=== PATIENT | male | born 2000 | race Caucasian/White ===

== ENCOUNTER 2022-10-14 15:53 | Inpatient (IN) | payer OTHER, SELFPAY ==
[2022-10-14] VITALS (9 sets, daily range): BP systolic 127–144; BP diastolic 81–95; PULSE 108–145; RESP 18–31; TEMP 35.7–36.8; O2SAT 94–100; BMI 20.2
[2022-10-14] MEDS: 0.9% Normal Saline 1,000 ML 999 ML IV ×2 (16:00→18:42)
--- NOTE | 2022-10-14 16:04 | EKG12_ITS ---
Test Reason : DKA Blood Pressure : / mmHG Vent. Rate : 120 BPM Atrial Rate : 120 BPM P-R Int : 128 ms QRS Dur : 102 ms QT Int : 362 ms P-R-T Axes : 077 024 050 degrees QTc Int : 511 ms Sinus tachycardia Otherwise normal ECG Confirmed by REYMUNDO TILLEY, NEVIN ([id number]), film or videotape editor YAMILKA ORDAZ ([id number]) on 10/15/2022 11:03:42 AM Referred By: Confirmed By:NEVIN DWYER MD
--- NOTE | 2022-10-14 16:08 | EDS_ITS ---
HPI History of Present Illness Chief Complaint: Hyperglycemia Detail of Chief Complaint: Unresponsive Informant: spouse/S.O. Onset/Context/Timing Onset: - (Unknown) Context: - (Unknown) Timing: Continuous (He has not been his normal self since this morning per significant other) Quality: Patient has a GCS of 3 Current Severity: Severe Maximum Severity: Severe Worsened by: Suspect patient has DKA Relieved by: Nothing Associated Symptoms Associated Symptoms: Unable to determine Narrative Narrative: Patient recently moved to [place]. There is no information on patient per old records. Patient's significant other states he is not his normal self. She told me his grandmother is on the way. He does have history of type 1 diabetes. Unknown if he has taken his insulin recently. Unknown if he is on other location. [facility] Medical History (Updated 10/14/22 @ 17:[address] Mitchel Lang MD) Type 1 diabetes mellitus Medical History unable to obtain unable to obtain Allergy/AdvReac Type Severity Reaction Status Date / Time No Known Allergies Allergy Verified 10/14/22 16:16 Family History unable to obtain unable to obtain Surgical History unable to obtain unable to obtain Social History Smoking Status: Current every day smoker tobacco type: e-cigarettes ROS ROS ED Review of Systems ROS Unobtainable: due to mental status EXAM Physical Exam Const Vital Signs: 10/14/22 15:55 Temperature 96.3 F L Temperature Source Temporal Pulse Rate 124 H Respiratory Rate 25 H Blood Pressure 136/89 H Blood Pressure Mean 104 Pulse Ox 94 Oxygen Delivery Method Room Air Positive well nourished and well developed Constitutional Narrative: Patient with nutrition coordinator small breathing. There is ketotic odor to his breath. General Appearance ED: well developed, NAD and pallor HEENT Reports moist mucous membranes HEENT Narrative: Head is atraumatic normocephalic. Ears normal. TMs normal. Nares patent. Difficult prying his mouth open. Eyes PERRL and EOMs intact bilaterally Eyes Narrative: Pressure on the right and left supraorbital nerves simultaneously with no response. General Eye ED: Negative for pale conjunctiva or scleral icterus Neck no lymphadenopathy, supple and no JVD Neck Narrative: Trachea is midline. There is no in-store expiratory stridor. Chest Wall inspection of chest normal and palpation of chest normal Resp Resp Narrative: Who small respiratory pattern of breathing. Breath sounds are noted bilaterally. There is no rales or rhonchi noted. Cardio regular rhythm, S1 normal heart sound, S2 normal heart sound and no murmurs Rate: tachycardic GI normal to inspection, nondistended, normoactive bowel sounds, non-tender, non- distended and no masses; Negative for hepatosplenomegaly Neuro No oriented x3 Neuro Narrative: GCS is 3 Psych Psych Narrative: Unable to assess Skin no rashes or lesions noted, no wounds and No skin turgor normal General Skin Exam: pallor; Negative for jaundice MDM MDM MDM Narrative Medical decision making narrative: Back patient is in DKA. If venous blood gases not markedly abnormal will obtain CT of the head to rule out intracranial process. Patient does not have clonus or Babinski sign. With history of diabetes ketotic odor to his breath and nutrition coordinator small respiratory breathing suspect he is in DKA. Insulin infusion to be starte d after first liter of normal saline. History & Record Review Additional record(s) reviewed:: Prior outpatient record (Cards from [facility] were obtained. He was admitted for DKA.) Lab Data Attestation: I reviewed the patient's lab results. Lab results narrative: Count is 29.7 thousand which may represent stress. H&H is elevated 17.7 and 55.2. I was informed by the respiratory therapist that his pH is 6.733, CO2 is 15 and bicarb is 2. Since patient is acidotic with peaked T waves consistent with hyperkalemia the hyperkalemia. Patient has received 1.75 L of saline. Nurse is waiting for the insulin to come from the pharmacy to start. Patient will require admission to the ICU. Troponin is less than 3. UA is remarkable for glucose urea and ketones consistent with DKA. Labs: Laboratory Results - last 24 hr 10/14/22 10/14/22 10/14/22 15:38 16:21 16:37 WBC 29.7 H RBC 5.85 Hgb 17.7 H Hct 55.2 H MCV 94.4 H MCH 30.3 MCHC 32.1 RDW Std Deviation 40.4 RDW Coeff of Reid 11.7 Plt Count 492 H MPV 9.7 Immature Gran % (Auto) 4.800 H Neut % (Auto) 74.6 H Lymph % (Auto) 15.7 L [place] % (Auto) 3.7 Eos % (Auto) 0.3 Baso % (Auto) 0.9 Absolute Neuts (auto) 22.2 H Absolute Lymphs (auto) 4.67 H Nucleated RBC % 0 Differential Comment SCANNED Sodium 132 L Potassium 5.6 H Chloride 100 Carbon Dioxide 4.0 L* Anion Gap 28 H BUN 20 H Creatinine 1.59 H Estim Creat Clear Calc 63.82 Est GFR (MDRD) Af Amer 71 Est GFR (MDRD) Non-Af 59 L BUN/Creatinine Ratio 12.6 Glucose 741 H* Calcium 9.6 Phosphorus 7.2 H Magnesium 2.8 H Troponin I High Sens < 3 L Urine Color Yellow Urine Clarity Clear Urine pH 5.0 Ur Specific [place] 1.020 Urine Protein 100 H Urine Glucose (UA) 1000 H Urine Ketones 150 A* Urine Occult Blood 10 H Urine Nitrite Negative Urine Bilirubin Negative Urine Urobilinogen Normal Ur Leukocyte Esterase Negative Urine RBC 0 SEEN Urine WBC 0 SEEN Ur Squamous Epith Cells 0 SEEN Urine Bacteria 0 SEEN Urine Mucus 0 SEEN POC Glucose > 500 H* VBG reveals a pH of 6.73, PCO2 15.4, PO2 122.8, bicarb 2.1, base excess -30 with a 91.7% saturation. This is consistent with significant DKA. ABG Data ABG results: ABG 10/14/22 16:29 Specimen Type JESSICA VBG pH 6.73 L* VBG pO2 123 H VBG HCO3 2 L VBG Total CO2 < 5 L VBG O2 Sat (Calc) 92 H VBG Base Excess < -30 L POC Mix VBG pCO2 Pt Tmp 15.4 L* Crit Call To/Read Back Yes Blood Gas Notified Whom nathaly Blood Gas Notified Time 16:32:17 Rhythm Strip Rhythm Strip: Sinus Tach Rate: 123 EKG Initial EKG: Attestation: I personally reviewed and interpreted this EKG as follows: Interpretation: Sinus Tachycardia (Rate is 120. FL interval is 128 ms. Cures duration 102 ms. QT duration 162 ms [place] normal. Patient has T wave consistent with hyperkalemia. Since patient does have EKG changes is acidotic he was treated with insulin, bicarb and calcium gluconate since he does not have a central line.) Management Discussion w/another healthcare provider: Hospitalist (Discussed with hospitalist. Will admit to ICU.) Treatment and Re-Evaluation :: Informed that patient is thrashing. He was placed in restraints for medical reason. Patient is not redirectable he has acute encephalopathy due to DKA. Critical Care Time Critical Care Time: Yes Critical care time (excluding procedures): 30-74 minutes (42 minutes), Including time spent: (History, physical, documentation, review of outside records), Discussing w/Patient &/or Family/Fruit Bar Maker (Significant other who is at bedside. Grandmother has not arrived as of 163.), Discussing w/Consultants, Arranging Admission or Transfer and Performing Direct Patient Care at Bedside Discharge Plan Dx/Rx/DC Orders Clinical Impression: Sinus tachycardia, DKA, type 1, [place] coma scale score 3-8, at arrival to emergency department, Acute hyperkalemia, Leukocytosis, Elevated serum creatinine Disposition Disposition: Acute Care [facility]
--- NOTE | 2022-10-14 16:12 | NURSING ---
NO OLD EKGS
[2022-10-14 16:21] LABS: Absolute Lymphocyte Count 4.67 X10^3/uL (0.83-4.51); Absolute Neutrophil Count 22.2 X10^3/uL (2.0-7.7); Basophil# 0.27 X10^3/uL; Basophil% 0.9 % (0-1); Eosinophil# 0.09 X10^3/uL; Eosinophils% 0.3 % (0-5); Hematocrit 55.2 % (40-54); Hemoglobin 17.7 g/dL (13.0-16.5); Lymphocyte # 4.67 X10^3/ul (0.83-4.51); Lymphocyte % 15.7 % (19-41); Mean Corp Hgb Conc 32.1 g/dL (32-36); Mean Corpuscular Hgb 30.3 pg (27.0-32.0); Mean Corpuscular Volume 94.4 fL (80-94); Mean Platelet Vol. 9.7 fl (6.2-12.0); Monocyte% 3.7 % (0-10); NRBC Flagged by Analyzer 0 % (0-5); Neutrophil # 22.18 X10^3/uL (2.7-7.7); Neutrophil % 74.6 % (47-70); POSITIVE DIFFERENTIAL YES; Platelet Count 492 K/mm3 (150-450); RBC Distribution Width CV 11.7 % (11.6-14.6); RBC Distribution Width SD 40.4 fl (35.1-43.9); Red Blood Count 5.85 M/mm3 (4.6-6.2); White Blood Count 29.7 K/mm3 (4.4-11.0)
[2022-10-14 16:22] LABS: Differential Indicated SCAN CRITERIA MET
[2022-10-14 16:42] LABS: Bedside Glucose > 500 mg/dL (74-106)
[2022-10-14 16:42] LABS: Bacteria 0 SEEN /hpf (None Seen); Mucous, Urine 0 SEEN /hpf (<or=2+); Red Blood Cells-Urine 0 SEEN /hpf (0-5); Squamous Epithelial Cells - UA 0 SEEN /hpf (0-5); White Blood Cells 0 SEEN /hpf (0-5)
[2022-10-14 16:49] LABS: Color, Urine Yellow (Yellow); Glucose, Dipstick 1000 mg/dl (Normal); Leukocyte Esterase-Dipstick Negative /ul (Negative); Nitrite-Dipstick Negative (Negative); Occult Blood-Urine 10 /ul (Negative); Protein-Dipstick 100 mg/dl (Negative); Urine Bilirubin Dipstick Negative (Negative); Urine Clarity Clear (Clear); Urine Urobilinogen Normal (Normal)
[2022-10-14 16:49] LABS: Blood Gas Specimen Type VEN; VBG BASE EXCESS < -30 mmol/L (-1.0-3.5); VBG PO2 123 mmHg (25-40); VBG SO2 92 % (50-70); VBG TCO2 < 5 mmol/L (23-33); VBG pCO2 15.4 mmHg (41-51); VBG pH 6.73 (7.32-7.42)
[2022-10-14 16:52] LABS: Ketone-Dipstick 150 mg/dl (Negative)
[2022-10-14 16:53] LABS: VBG Bicarbonate 2 mmol/L (22-26)
[2022-10-14 16:58] LABS: Anion Gap 28 (5-15); BUN 20 mg/dL (7-18); BUN/Creat Ratio 12.6 RATIO (10-20); Calcium,Total 9.6 mg/dL (8.5-10.1); Chloride 100 mmol/L (98-107); Creatinine, Serum 1.59 mg/dL (0.70-1.30); EST Glomerular Filtration Rate 59 mL/min (>60); Est Glom Filt Rate - Afr Amer 71 mL/min (>60); Estimated Creatinine Clearance 63.82 ml/min; Glucose 741 mg/dL (74-106); Magnesium 2.8 mg/dL (1.6-2.6); Phosphorus 7.2 mg/dL (2.5-4.9); Potassium 5.6 mmol/L (3.5-5.1); Sodium Level 132 mmol/L (136-145); Troponin-I HS < 3 pg/mL (3.0-78.0)
[2022-10-14 17:00] LABS: Differential Comment SCANNED
--- NOTE | 2022-10-14 17:00 | ED.RN ---
Addendum entered by Edward Benavides 10/14/22 17:11: PATIENT PLACED IN SOFT RESTRAINTS AT 1700. PT ALSO SOILED SHORTS AND UNDERWEAR. CLOTHING HAS BEEN DOUBLE BAGGED AND GIVEN TO S.O. BEDSHEET AND GOWN CHANGED. PT CLEANED WITH WARM WIPES AND PLACED IN ADULT DIAPER. PT REPOSITIONED IN BED Original Note: PATIENTS S.O CALLED OUT FOR HELP. RN ENTERED PATIENTS ROOM. PATIENT PULLING AT TUBES AND ATTEMPTING TO GET OUT OF BED. PT PUT BACK IN BED WITH THIS RN AND FINN FROM RESPIRATORY. DR. CHACON NOTIFIED. PATIENT PLACED IN SOFT
--- NOTE | 2022-10-14 17:15 | NURSING ---
DR INGRID HANKINS
--- NOTE | 2022-10-14 17:30 | HP.PCM.HOS_ITS ---
HPI - General General Date of Service: 10/14/22 Chief Complaint: unresponsive HPI Narrative YANG WYNNE, is a 22 M who presents being unresponsive. Patient was sent to the emergency room and found to be in diabetic ketoacidosis with hyperkalemia. Patient received IV fluids, sodium bicarbonate and insulin. Patient is lethargic and unable to respond to any questioning. Patient be admitted for diabetic ketoacidosis. Review of the medical records through [facility] shows that he has been in DKA before back in May. [facility] Medical History (Updated 10/14/22 @ 17:[address] Alex Cruz DO) Celiac disease Hypercholesterolemia Persistent depressive disorder Thyroid antibody positive Type 1 diabetes mellitus Medical History unable to obtain Allergy/AdvReac Type Severity Reaction Status Date / Time No Known Allergies Allergy Verified 10/14/22 16:16 Family History unable to obtain unable to obtain Surgical History unable to obtain no surgical history Social History Smoking Status: Current every day smoker tobacco type: e-cigarettes ROS Review of Systems ROS Unobtainable: due to encephalopathy Vital Signs Vital Signs Vital Signs: 10/14/22 15:55 Temperature 35.7 C L Temperature Source Temporal Pulse Rate 124 H Respiratory Rate 25 H Blood Pressure 136/89 H Blood Pressure Mean 104 Pulse Ox 94 Oxygen Delivery Method Room Air Weight Weight: 61.4 kg Body Mass Index (BMI) 20.0 Physical Exam Narrative Lethargic. No respiratory distress. Withdraws to noxious stimuli. Const Orientation / Consciousness: lethargic HEENT normocephalic and head/scalp atraumatic Eyes PERRL Eyes Narrative: No icterus Neck no lymphadenopathy Resp normal respiratory effort, no retractions, no use of accessory muscles and clear to auscultation bilaterally Cardio regular rate, regular rhythm, S1 normal heart sound and S2 normal heart sound GI normal to inspection, nondistended, normoactive bowel sounds, soft to palpation, non-tender, non-distended and hepatosplenomegaly Extremity normal to inspection, full ROM and no clubbing, cyanosis or edema Neuro oriented x3, CN's II-XII intact bilaterally, moves all extremities and no focal motor deficits Results Lab / Micro Data Attestation: I reviewed the patient's lab results. 10/14/22 15:38 10/14/22 15:38 Labs: Laboratory Results - last 24 hr 10/14/22 15:38: WBC 29.7 H, RBC 5.85, Hgb 17.7 H, Hct 55.2 H, MCV 94.4 H, MCH 30.3, MCHC 32.1, RDW Std Deviation 40.4, RDW Coeff of Reid 11.7, Plt Count 492 H, MPV 9.7, Immature Gran % (Auto) 4.800 H, Neut % (Auto) 74.6 H, Lymph % (Auto) 15.7 L, [place] % (Auto) 3.7, Eos % (Auto) 0.3, Baso % (Auto) 0.9, Absolute Neuts (auto) 22.2 H, Absolute Lymphs (auto) 4.67 H, Nucleated RBC % 0, Differential Comment SCANNED, Sodium 132 L, Potassium 5.6 H, Chloride 100, Carbon Dioxide 4.0 L*, Anion Gap 28 H, BUN 20 H, Creatinine 1.59 H, Estim Creat Clear Calc 63.82, Est GFR (MDRD) Af Amer 71, Est GFR (MDRD) Non-Af 59 L, BUN/Creatinine Ratio 12.6, Glucose 741 H*, Calcium 9.6, Phosphorus 7.2 H, Magnesium 2.8 H, Troponin I High Sens < 3 L 10/14/22 16:21: POC Glucose > 500 H* 10/14/22 16:37: Urine Color Yellow, Urine Clarity Clear, Urine pH 5.0, Ur Specific [place] 1.020, Urine Protein 100 H, Urine Glucose (UA) 1000 H, Urine Ketones 150 A*, Urine Occult Blood 10 H, Urine Nitrite Negative, Urine Bilirubin Negative, Urine Urobilinogen Normal, Ur Leukocyte Esterase Negative, Urine RBC 0 SEEN, Urine WBC 0 SEEN, Ur Squamous Epith Cells 0 SEEN, Urine Bacteria 0 SEEN, Urine Mucus 0 SEEN ABG Data ABG results: ABG 10/14/22 16:29 Specimen Type JESSICA VBG pH 6.73 L* VBG pO2 123 H VBG HCO3 2 L VBG Total CO2 < 5 L VBG O2 Sat (Calc) 92 H VBG Base Excess < -30 L POC Mix VBG pCO2 Pt Tmp 15.4 L* Crit Call To/Read Back Yes Blood Gas Notified Whom nathaly Blood Gas Notified Time 16:32:17 Rhythm Strip Rhythm Strip: Sinus Tach Rate: 123 EKG Initial EKG: Attestation: I personally reviewed and interpreted this EKG as follows: Prior EKG tracings: available for review EKG Rhythm Intrepretation: Sinus Tachycardia (With peaked T waves) Assessment & Plan Assessment/Plan (1) DKA, type 1: QUALIFIERS: Diabetes mellitus complication detail: with coma Qualified Code(s): E10.11 - Type 1 diabetes mellitus with ketoacidosis with coma PLAN: No need for endotracheal intubation at this time as patient is maintaining his oxygenation's. Patient has been started on insulin drip. We will continue with DKA protocol. Continue with IV fluids Through clinic think in a discharge on May of this year, patient was to be ta be[place] basal insulin at 30 units nightly and short acting insulin on a adjustable scale. Unclear if patient has still been continuing to do that. Unclear if patient has had noncompliance. (2) Acute hyperkalemia: PLAN: Secondary to DKA Patient received sodium bicarbonate and calcium gluconate Patient is to obtunded at this time to receive Kayexalate. (3) Encephalopathy: PLAN: Secondary to above Hold potentiating medications Check urine drug screen (4) MARCEL (acute kidney injury): PLAN: Likely prerenal IV fluids Monitor (5) Sinus tachycardia: PLAN: Likely reactive due to the metabolic derangements and dehydration Treat the underlying processes Monitor PLAN: Plan Chronic conditions * Celiac disease: Patient is able to eat as well as putting him on a carb controlled diet, patient will need a gluten-free diet. * History of thyroid antibody positive: Follow-up with endocrinology as outpatient VTE prophylaxis: Low molecular weight heparin. Patient is moving around in bed and is confused. Soft restraints were placed in the emergency room to protect IV access for the time being. That can be removed once patient becomes more coherent and alert. Charges/Coding Visit Charges Inpatient E&M: 94102 Init Hosp L3
[2022-10-14] MEDS: Calcium Gluconate IV 3 GM in Syringe 1 EACH IV (17:33)
[2022-10-14] MEDS: Insulin Lispro 10 UNIT in Syringe 0 ML 6 UNIT IV (17:36)
--- NOTE | 2022-10-14 17:38 | NURSING ---
ICU DKA INGRID
--- NOTE | 2022-10-14 17:43 | NURSING ---
CV ICU 202
[2022-10-14 17:58] LABS: Bedside Glucose > 500 mg/dL (74-106)
[2022-10-14 18:40] LABS: Anion Gap 21 (5-15); BUN 17 mg/dL (7-18); Calcium,Total 7.5 mg/dL (8.5-10.1); Chloride 118 mmol/L (98-107); Creatinine, Serum 1.06 mg/dL (0.70-1.30); EST Glomerular Filtration Rate 94 mL/min (>60); Est Glom Filt Rate - Afr Amer 113 mL/min (>60); Estimated Creatinine Clearance 95.74 ml/min; Glucose 452 mg/dL (74-106); Potassium 4.4 mmol/L (3.5-5.1); Sodium Level 141 mmol/L (136-145)
--- NOTE | 2022-10-14 19:41 | PN.HOSP_ITS ---
Hospitalist Note Additional note: Patient's family (Mother) requested the patient be transferred to [facility], I contacted the [facility] transfer line and a Dr. Simpson (Peds ICU) accepted the patient to [facility] Peds ICU, I signed transfer papers and the patient will be transported hopefully tonight.
--- NOTE | 2022-10-14 19:41 | PCM.HOSP.N ---
Hospitalist Note Additional note: Patient's family (Mother) requested the patient be transferred to [facility], I contacted the [facility] transfer line and a Dr. Simpson (Peds ICU) accepted the patient to [facility] Peds ICU, I signed transfer papers and the patient will be transported hopefully tonight.
[2022-10-14] MEDS: 0.9% Normal Saline 1,000 ML 500 ML IV (19:44)
[2022-10-14] MEDS: Ondansetron 4 MG/2 ML Vial IV (19:44)
[2022-10-14 20:24] LABS: Amphetamine Urine VISTA NEGATIVE (<1000 ng/mL); Barbiturate Urine VISTA NEGATIVE (< 200 ng/mL); Benzodiazepine Urine VISTA NEGATIVE (< 200 ng/mL); Cocaine Urine VISTA NEGATIVE (< 300 ng/mL); Ecstacy Urine VISTA NEGATIVE (< 500 ng/mL); Methadone Urine VISTA NEGATIVE (< 300 ng/mL); PCP Urine VISTA NEGATIVE (< 25 ng/mL); THC Urine VISTA POSITIVE (< 50 ng/mL); Vista UDS pH Range 5
--- NOTE | 2022-10-14 21:40 | NURSING ---
Report given to [facility] team at bedside. Currently at bedside assessing patient and preparing for transport.
[2022-10-14 22:55] LABS: Bedside Glucose 354 mg/dL (74-106)
[2022-10-14 22:55] LABS: Bedside Glucose 413 mg/dL (74-106)
--- NOTE | 2022-10-15 07:57 | DS.PCM_ITS ---
Providers Date of Admission: 10/14/22 Primary Care Physician: No Primary Care Phys Reason For Visit: DKA Diagnosis Discharge Diagnosis (1) DKA, type 1: Status: Acute Code(s): E10.10 - Type 1 diabetes mellitus with ketoacidosis without coma Qualifiers: Diabetes mellitus complication detail: with coma Qualified Code(s): E10.11 - Type 1 diabetes mellitus with ketoacidosis with coma Plan: No need for endotracheal intubation at this time as patient is maintaining his oxygenation's. Patient has been started on insulin drip. We will continue with DKA protocol. Continue with IV fluids Through clinic think in a discharge on May of this year, patient was to be taking basal insulin at 30 units nightly and short acting insulin on a adjustable scale. Unclear if patient has still been continuing to do that. Unclear if patient has had noncompliance. (2) Acute hyperkalemia: Status: Acute Code(s): E87.5 - Hyperkalemia Plan: Secondary to DKA Patient received sodium bicarbonate and calcium gluconate Patient is to obtunded at this time to receive Kayexalate. (3) Encephalopathy: Status: Acute Code(s): G93.40 - Encephalopathy, unspecified Plan: Secondary to above Hold potentiating medications Check urine drug screen (4) MARCEL (acute kidney injury): Status: Acute Code(s): N17.9 - Acute kidney failure, unspecified Plan: Likely prerenal IV fluids Monitor (5) Sinus tachycardia: Status: Acute Code(s): R00.0 - Tachycardia, unspecified Plan: Likely reactive due to the metabolic derangements and dehydration Treat the underlying processes Monitor Plan Chronic conditions * Celiac disease: Patient is able to eat as well as putting him on a carb controlled diet, patient will need a gluten-free diet. * History of thyroid antibody positive: Follow-up with endocrinology as outpatient VTE prophylaxis: Low molecular weight heparin. Patient is moving around in bed and is confused. Soft restraints were placed in the emergency room to protect IV access for the time being. That can be removed once patient becomes more coherent and alert. Patient was transferred to [facility] per family request. Medications at Discharge Home Medications insulin degludec 100 unit/mL (3 mL) subcutaneous pen (Tresiba FlexTouch U-100 insulin) 34 unit subcut DAILY diabetes 10/14/22 insulin lispro 100 unit/mL subcutaneous pen (Humalog KwikPen (U-100) Insulin) subcut diabetes 10/14/22 Hospital Course Operations None Summary of Care Provided Minutes Spent on Discharge: 45 Weight / BMI Weight Weight: 62.3 kg Body Mass Index (BMI) 20.2 ABG / Lab / Microbiology Data 10/14/22 15:38 10/14/22 17:48 Laboratory: Laboratory Results - last 24 hr 10/14/22 15:38: WBC 29.7 H, RBC 5.85, Hgb 17.7 H, Hct 55.2 H, MCV 94.4 H, MCH 30.3, MCHC 32.1, RDW Std Deviation 40.4, RDW Coeff of Reid 11.7, Plt Count 492 H, MPV 9.7, Immature Gran % (Auto) 4.800 H, Neut % (Auto) 74.6 H, Lymph % (Auto) 15.7 L, [place] % (Auto) 3.7, Eos % (Auto) 0.3, Baso % (Auto) 0.9, Absolute Neuts (auto) 22.2 H, Absolute Lymphs (auto) 4.67 H, Nucleated RBC % 0, Differential Comment SCANNED, Sodium 132 L, Potassium 5.6 H, Chloride 100, Carbon Dioxide 4.0 L*, Anion Gap 28 H, BUN 20 H, Creatinine 1.59 H, Estim Creat Clear Calc 63.82, Est GFR (MDRD) Af Amer 71, Est GFR (MDRD) Non-Af 59 L, BUN/Creatinine Ratio 12.6, Glucose 741 H*, Calcium 9.6, Phosphorus 7.2 H, Magnesium 2.8 H, Troponin I High Sens < 3 L 10/14/22 16:21: POC Glucose > 500 H* 10/14/22 16:37: Urine Color Yellow, Urine Clarity Clear, Urine pH 5.0, Ur Specific [place] 1.020, Urine Protein 100 H, Urine Glucose (UA) 1000 H, Urine Ketones 150 A*, Urine Occult Blood 10 H, Urine Nitrite Negative, Urine Bilirubin Negative, Urine Urobilinogen Normal, Ur Leukocyte Esterase Negative, Urine RBC 0 SEEN, Urine WBC 0 SEEN, Ur Squamous Epith Cells 0 SEEN, Urine Bacteria 0 SEEN, Urine Mucus 0 SEEN, Urine Opiates Screen NEGATIVE, Urine Methadone Screen NEGATIVE, Ur Barbiturates Screen NEGATIVE, Ur Phencyclidine Scrn NEGATIVE, Ur Amphetamines Screen NEGATIVE, MDMA (Ecstasy) Screen NEGATIVE, U Benzodiazepines Scrn NEGATIVE, Urine Cocaine Screen NEGATIVE, U Cannabinoids Screen POSITIVE H, Ur Drug Screen Comment 10/14/22 17:24: POC Glucose > 500 H* 10/14/22 17:48: Sodium 141, Potassium 4.4, Chloride 118 H, Carbon Dioxide 2.0 L* , Anion Gap 21 H, BUN 17, Creatinine 1.06, Estim Creat Clear Calc 95.74, Est GFR (MDRD) Af Amer 113, Est GFR (MDRD) Non-Af 94, BUN/Creatinine Ratio 16.0, Glucose 452 H*, Calcium 7.5 L 10/14/22 19:23: POC Glucose 413 H 10/14/22 20:46: POC Glucose 354 H ABG: ABG 10/14/22 16:29 Specimen Type JESSICA VBG pH 6.73 L* VBG pO2 123 H VBG HCO3 2 L VBG Total CO2 < 5 L VBG O2 Sat (Calc) 92 H VBG Base Excess < -30 L POC Mix VBG pCO2 Pt Tmp 15.4 L* Crit Call To/Read Back Yes Blood Gas Notified Whom nathaly Blood Gas Notified Time 16:32:17 Meaningful Use Info Meaningful Use Diagnoses (Choose all that apply): None applicable Discharge Plan Admission Admit Date/Time: 10/14/22 17:22 Primary Reason for Your Visit: DKA Attending Provider: Alex Cruz Primary Care Provider: Cynthia Physician,Cindy Primary Discharge Orders/Prescriptions Prescriptions: No Action insulin degludec [Tresiba FlexTouch U-100] 100 unit/mL (3 mL) insulin pen 34 unit SUBCUT DAILY Patient Comments: INJECT UP TO 34 UNITS SUBCUTANEOUSLY DAILY DIRECTED insulin lispro [Humalog KwikPen Insulin] 100 unit/mL insulin pen SUBCUT Patient Comments: INJECT up to 60 UNITS DAILY DIRECTED Referrals / Follow Up: Care Physician,No Primary [Primary Care Provider] - Disposition Disposition (needs filled in before D/C Order can be placed[facility] Charges/Coding Visit Charges Inpatient E&M: 71390 Disch Hosp >30min
== END 2022-10-14 22:10 | disposition designated cancer center or children's hospital (05) | DRG 638 ==
LOC: ED 17:44 → ICU 10-15 09:01
PROVIDERS: Emergency Provider Emergency Medicine
DX: E10.10 Type 1 diabetes mellitus with ketoacidosis without coma (principal); N17.9 Acute kidney failure, unspecified; G93.40 Encephalopathy, unspecified; E10.65 Type 1 diabetes mellitus with hyperglycemia; F17.210 Nicotine dependence, cigarettes, uncomplicated; E87.5 Hyperkalemia; E78.00 Pure hypercholesterolemia, unspecified; R00.0 Tachycardia, unspecified; K90.0 Celiac disease
CPT/HCPCS: 80048; 80307; 81001; 82803; 82962; 83735; 84100; 84484; 85025; 87040; 93005; 99285; J7030; A4216; J0612; J2405

== ENCOUNTER 2024-11-16 11:07 | Emergency (ER) | payer OTHER, SELFPAY ==
[2024-11-16 11:08] VITALS: BP 131/66; PULSE 78; RESP 16; TEMP 36.9; O2SAT 98; BMI 23.6
--- NOTE | 2024-11-16 11:18 | RAD_ITS ---
PROCEDURE: KNEE 4 OR MORE VIEWS 11/16/2024 REASON FOR EXAM: INJURY TECHNIQUE: Left knee four views COMPARISON: None FINDINGS: There is no fracture or dislocation identified the joint spaces are maintained. There is no visible effusion. There is no soft tissue abnormality or visible radiopaque foreign body. There is no visible atherosclerosis. RAD/Knee 4 or More Views IMPRESSION: No fracture or dislocation is identified. Reading Location: [facility]
--- NOTE | 2024-11-16 12:44 | EX.ED.DYSGE1 ---
HPI History of Present Illness Chief Complaint: Lower Extremity Injury Narrative Narrative: Chief complaint and HPI: 24-year-old male with past medical history of DM1 presents for evaluation of left knee pain. Patient states on Friday he was playing flag football with his kid when he accidentally stepped into a hole. States originally he had no pain but then developed pain in his left knee. Has been using Tylenol. No difficulty with ambulation. Denies any numbness or tingling. Denies any pain in the ankle or the foot. Pain is mostly located on the patella. Review of systems: See HPI Medications: As listed on the chart Allergies: As listed on the chart PFSH: Per chart Vital signs: As listed on the chart. Reviewed. Physical exam: Gen: A&O x3, NAD Head: Normocephalic, atraumatic Eyes: No sclera icterus, conjunctiva clear ENT: Moist mucous membranes CV: Regular rate Resp: Nonlabored respirations Musc: Full ROM of all the extremities including the left lower extremity, full range of motion of the left knee including extension and flexion, no knee instability, compartments soft, knee tender to palpation overlying the patella and quadriceps tendon-tendon is intact without overlying ecchymosis/swelling/rash, no knee effusion/ecchymosis/deformity, no clicking or popping, no crepitus, compartments soft, DP/PT pulses +2 bilaterally, good capillary refill Skin: Warm, dry Neuro: Alert, oriented, grossly intact, sensation intact Psych: Cooperative, appropriate mood and affect PFS PFS Medical History Thyroid antibody positive Persistent depressive disorder Hypercholesterolemia Celiac disease DKA, type 1 Type 1 diabetes mellitus Home Medications ?Medication ?Instructions ?Recorded ?Last Taken ?Type insulin degludec 100 unit/mL (3 34 unit subcut DAILY diabetes 10/14/22 10/13/22 History mL) subcutaneous pen (Tresiba FlexTouch U-100 insulin) insulin lispro 100 unit/mL subcut diabetes 10/14/22 Unknown History subcutaneous pen (Humalog KwikPen (U-100) Insulin) Allergy/AdvReac Type Severity Reaction Status Date / Time No Known Allergies Allergy Verified 11/16/24 11:07 Family History unable to obtain Social History Smoking Status: Current every day smoker tobacco type: e-cigarettes EXAM Physical Exam Const Vital Signs: 11/16/24 11:08 Temperature 98.4 F Temperature Source Oral Pulse Rate 78 Respiratory Rate 16 Blood Pressure 131/66 H Blood Pressure Mean 87 Pulse Ox 98 Oxygen Delivery Method Room Air MDM MDM MDM Narrative Medical decision making narrative: 24-year-old male with past medical history of DM1 presents for evaluation of left knee pain. Patient states on Friday he was playing flag football with his kid when he accidentally stepped into a hole. States originally he had no pain but then developed pain in his left knee. Has been using Tylenol. No difficulty with ambulation. See physical exam findings. Patient had x-ray of the knee performed per protocol in triage. I agree the x-ray that was ordered. This was personally reviewed interpreted by me, ED physician. No fracture or dislocation. No effusion. Radiology in agreement. At this point in time, no clear etiology for patient's pain. May be secondary to a sprain. Recommend following up with orthopedic physician. Tylenol and ibuprofen as needed for pain. Rest. He confirmed understanding the plan. Be stable to discharge home. Impression: 1. Left knee pain secondary to injury Radiography Diagnostic Testing: Clinical Impression(s) from Imaging Studies Knee X-Ray 11/16/24 11:18 IMPRESSION: No fracture or dislocation is identified. Reading Location: [facility] Discharge Plan Triage Chief Complaint: Lower Extremity Injury ED Provider: Antolin Goldman Dx/Rx/DC Orders Prescriptions: No Action insulin degludec [Tresiba FlexTouch U-100] 100 unit/mL (3 mL) insulin pen 34 unit SUBCUT DAILY Patient Comments: INJECT UP TO 34 UNITS SUBCUTANEOUSLY DAILY DIRECTED insulin lispro [Humalog KwikPen Insulin] 100 unit/mL insulin pen SUBCUT Patient Comments: INJECT up to 60 UNITS DAILY DIRECTED Primary Care Provider: Care Physician,No Primary Referrals: Care Physician,No Primary [Primary Care Provider] - Print Language: Kazakh
[2024-11-16 13:04] VITALS: BP 122/87; PULSE 78; RESP 19; TEMP 36.6; O2SAT 100
== END 2024-11-16 13:04 | disposition home or self-care (01) ==
LOC: ED 12:58
PROVIDERS: Emergency Provider Surgery; Visit Provider Surgery
DX: S89.92XA Unspecified injury of left lower leg, initial encounter (principal); E10.9 Type 1 diabetes mellitus without complications; Z79.4 Long term (current) use of insulin; E78.00 Pure hypercholesterolemia, unspecified; F17.290 Nicotine dependence, other tobacco product, uncomplicated; Y93.61 Activity, american tackle football; Y92.89 Other specified places as the place of occurrence of the external cause; W18.42XA Slipping, tripping and stumbling without falling due to stepping into hole or opening, initial encounter
CPT/HCPCS: 73564; 99282